=== PATIENT | female | born 1990 | race Caucasian/White ===

== ENCOUNTER 2025-11-19 13:52 | Outpatient (REF) | payer OTHER, SELFPAY ==
--- OUTSIDE RECORDS SUMMARY | 2024-09-30 06:30 | XMS_ITS | Encounter Summary ---
Author Organization [facility] Address [address] [place] [address] Care Team Providers Care Printing Agent Name Role Phone Donavon Palaciso MD Primary Care Provider Encounter Details Date Type Department Care Team (Late st Contact Info) Description 09/30/2024 7:30 AM EDT Hospital Encounter TH HISTORIC ENCOUNTERS EASTERN CONVERSION ONLY Ermelinda Carrasco PA [address] [place] [address] Social History Tobacco Use Types Packs/Day Years Used Date Smoking Tobacco: Never Smokeless Tobacco: Never Alcohol Use Standard Drinks/Week Comments No 0 (1 standard drink = 0.6 oz pur e alcohol) Housing Instability Answer Date Recorde d Are you worried that in the next 2 months you may not have stable housing? No 07/09/2025 Food Access & Nutrition Answer Date Rec orded Do you have access to a vari ety of food including fruits and vegetables? Yes 07/09/2025 Access to Healthcare Answer Date Record ed Within the last 3 months, ho w many times did you visit the emergency department for your medical care? 0 07/09/2025 Health Literacy Answer Date Recorded How often do you need to hav e someone help you when you read instructions, pamphlets, or other written material from your doctor or pharmacy? Never 07/09/2025 Caregiver: How often do you need to have someone help you when you read instructions, pamphlets, or other written material from your doctor or pharmacy? Not on file 07/09/2025 Financial Risk Answer Date Recorded How hard is it for you to pa y for the very basics like food, housing, medical care, and air conditioning / heating? Not very hard 07/09/2025 Transportation Answer Date Recorded Has the lack of transportati on kept you from meetings, work, or from getting things needed for daily living? No Has the lack of transportati on kept you from medical appointments or from getting medications? Yes 07/09/2025 Social Isolation Answer Date Recorded How often do you feel lonely or isolated from th ose around you? Never 07/09/2025 Food Risk Answer Date Recorded Within the past 12 months we worried whether our food would run out before we got money to buy more. Never true 07/09/2025 Within the past 12 months th e food we bought just didn't last and we didn't have money to get more. Never true 07/09/2025 Dependent Care Answer Date Recorded Do you need help finding or paying for care for your loved ones. For example, children's librarian or elderly care for an older adult? No 07/09/2025 Education Answer Date Recorded Do you think completing more education or training, like finishing a GED, going to college, or learning a trade, would be helpful for you? No 07/09/2025 Employment and Income Answer Date Recor ded During the last four weeks, have you been actively looking for work? No 07/09/2025 Living Situation Answer Date Recorded What is your living situation? Unrecognized valu e 07/09/2025 Comments No Sex and Gender Information Value Date Recorded Sex Assigned at Not on file Legal Sex Female 1:59 PM EST Gender Identity Not on file Sexual Orientation Not on file documented as of this encounter Plan of Treatment Upcoming Encounters Date Type Department Care Team (Late st Contact Info) Description 11/23/2025 8:15 AM EST Office Visit Orthopedic Surgery - [place] 175 [facility] [address] [place] [phone] Queenie Poole PA 175 [facility] [address] [place] [phone] 12/14/2025 10:00 AM EST Office Visit Adult Medicine [address] [phone] Donavon Palacios MD [address] [place] [address] 12/17/2025 8:00 AM EST Consult Gastroenterology - 299 [facility] 299 [facility] [address] [place] [address] Ju Delatorre, RASHI [address] [address] 01/05/2026 10:30 AM EST Office Visit Orthopedic Surgery - [place] [address] [phone] Shashank Chaidez, DPM [address] [phone] 01/17/2026 8:30 AM EST Office Visit Adult Medicine [address] [phone] Chaka Haque, RASHI [address] [place] [address] 07/18/2026 9:00 AM EDT Office Visit Adult [address] [phone] Donavon Palacios MD [address] [place] [address] documented as of this encounter Visit Diagnoses Not on filedocumented in this encounter Care Teams Printing Agent Relationship Specialty Start Date End Date Donavon Palacios MD [address] [place] [address] PCP - General 09/14/24 documented as of this encounter
--- OUTSIDE RECORDS SUMMARY | 2025-11-16 08:57 | XMS_ITS | Encounter Summary ---
Author Organization [facility] Address [address] [place] [address] Care Team Providers Care Stick Puller Name Role Phone Donavon Palacios MD Primary Care Provider Reason for Referral * Imaging (Routine) - Pending Review Specialty Diagnoses / Procedures Referred By Adonis che Referred To Contact Radiology Diagnoses Bursitis of left shoulder Procedures MR Shoulder wo Contrast Left Queenie Poole PA [address] [phone] Phone: tel: fax: [address] [phone] Phone: tel: Referral ID Status Reason Start Date Expiration Date V isits Requested Visits Authorized [id number] Pending Review 10/26/2025 10/26/2026 1 1 Reason for Visit * Imaging (Routine) - Pending Review Specialty Diagnoses / Procedures Referred By Adonis che Referred To Contact Radiology Diagnoses Bursitis of left shoulder Procedures MR Shoulder wo Contrast Left Queenie Poole PA [address] [address] Phone: tel: fax: [address] [address] Phone: tel: Referral ID Status Reason Start Date Expiration Date V isits Requested Visits Authorized [id number] Pending Review 10/26/2025 10/26/2026 1 1 Encounter Details Date Type Department Care Team (Latest Contact Info) Description 11/16/2025 8:57 AM EST - 11/16/2025 11:59 PM EST Hospital Encounter [facility] MRI [address] [place] [address] Bursitis of left shoulder Discharge Disposition: Home or Self Care Social History Tobacco Use Types Packs/Day Years [...] Record ed Within the last 3 months, jasper maldonado many times did you visit the emergency [...] care for your loved ones. For example, director of child welfare services or elderly care for an older adult? [...] on file documented as of this encounter Medications at Time of Discharge ascorbic acid (VITAMIN C) 250 mg tablet Take 1 tablet (250 mg total) by mouth 1 (one) time each day. 03/06/2017 atorvastatin (LIPITOR) 40 mg tablet Take 1 tablet (40 mg total) by mouth 1 (one) time each day. 90 each 1 08/04/2025 diphenhydramine HCl (BENADRYL ALLERGY ORAL) Take by mouth. ergocalciferol (VITAMIN D-2) 1,250 mcg (50,000 unit) capsule Take 1 capsule (50,000 Units total) by mouth 1 (one) time per week. 16 capsule 09/16/2025 ferrous sulfate 325 mg (65 mg elemental iron) tablet Take 1 tablet (325 mg total) by mouth 1 (one) time each day. 03/06/2017 magnesium oxide (MAG-OX) 400 mg magnesium tablet Take 1 tablet (400 mg total) by mouth 1 (one) time each day. 90 tablet 1 07/09/2025 omeprazole OTC (PriLOSEC OTC) 20 mg EC tablet Take 1 tablet (20 mg total) by mouth 1 (one) time each day. ondansetron (ZOFRAN) 4 mg tablet Take 1 tablet (4 mg total) by mouth every 8 (eight) hours if needed for nausea or vomiting. 270 tablet 1 09/16/2025 riboflavin (Vitamin B-2) 100 mg tablet Take 4 tablets (400 mg total) by mouth 1 (one) time each day. 360 tablet 3 07/12/2025 rizatriptan (Maxalt) 10 mg tablet Take 1 tablet (10 mg total) by mouth 1 (one) time if needed for migraine. May repeat in 2 hours if unresolved. Do not exceed 30 mg in 24 hours. 10 tablet 3 07/09/2025 sertraline (ZOLOFT) 50 mg tablet Take 1 tablet (50 mg total) by mouth 1 (one) time each day. fter 30 each 2 11/16/2025 silver sulfADIAZINE (Silvadene) 1 % cream Apply topically 1 (one) time each day. 50 g 07/01/2025 documented as of this encounter Discharge Disposition Disposition Code Departure Means Destination Home or Self Care documented in this encounter Plan of Treatment Upcoming Encounters Date Type Department Care Team (Late st Contact Info) Description 11/23/2025 8:15 AM EST Office Visit Orthopedic Surgery [facility] 175 [facility] 140 [place] [phone] Queenie Poole PA 175 [facility] 140 [place] [address] 12/14/2025 10:00 AM EST Office Visit Adult Medicine [facility] [address] [place], [place] [phone] Donavon Palacios MD [address] [place], [place] 12/17/2025 8:00 AM EST Consult Gastroenterology - 299 [facility] 299 [facility] [address] [place] [address] Ju Delatorre, RASHI [address] [address] 01/05/2026 10:30 AM EST Office Visit Orthopedic Surgery - [place] 250 175 [facility] 250 [place] [phone] Shashank Chaidez, DPM [address] [phone] 01/17/2026 8:30 AM EST Office Visit Adult [address] [phone] Chaka Haque NP [address] [place] [address] 07/18/2026 9:00 AM EDT Office Visit [address] [phone] Donavon Palacios MD [address] [place] [address] documented as of this encounter Procedures Procedure Name Priority Date/Time Associated Diagnosis Comments MR SHOULDER WO CONTRAST LEFT Routine 11/16/2025 10:34 AM EST Bursitis of left shoulder documented in this encounter Results * MR Shoulder wo Contrast Left (11/16/2025 10:34 AM EST) Anatomical Region Laterality Modality Upper Extremities, Shoulder Left Magn etic Resonance 11/17/2025 3:26 AM EST Impressions 11/17/2025 3:31 AM EST Findings suspicious for anterosuperior labral tearing with associated para labral cyst -------- FINAL REPORT -------- Dictated By: Enma Willoughby Dictated Date: 11/17/2025 03:26 ET Assigned Physician: Enma Willoughby Reviewed and Electronically Signed By: Enma Willoughby Signed Date: 11/17/2025 03:31 ET Workstation ID: [id number] Transcribed By: Self Edit Transcribed Date: 11/17/2025 03:26 ET Narrative 11/17/2025 3:31 AM EST INDICATION: Evaluate rotator cuff left shoulder pain. Clinical concern for bursitis. COMPARISON: None TECHNIQUE: Multiplanar, multisequence MRI examination was performed of the left shoulder without intravenous contrast. FINDINGS: Rotator Cuff: No rotator cuff tear of the left shoulder. The supraspinatus, infraspinatus and subscapularis tendons are intact. No significant muscle volume loss or fatty infiltration. Biceps Tendon: Intact Labrum: Irregularity and fluid signal involving the anterosuperior labrum with an associated para labral cyst suspicious for labral tearing. Bone/Cartilage: No acute fracture or dislocation. No significant cartilage thinning. AC Joint: No significant AC joint arthropathy. Downsloping acromion Miscellaneous:Trace subacromial/subdeltoid bursal fluid. Physiologic left shoulder joint fluid. Procedure Note Enma Willoughby MD - 11/17/2025 INDICATION: Evaluate rotator cuff left shoulder pain. Clinical concernfor bursitis. COMPARISON: None TECHNIQUE: Multiplanar, multisequence MRI examination was performed ofthe left shoulder without intravenous contrast. FINDINGS: Rotator Cuff: No rotator cuff tear of the left shoulder. Thesupraspinatus, infraspinatus and subscapularis tendons are intact. Nosignificant muscle volume loss or fatty infiltration. Biceps Tendon: Intact Labrum: Irregularity and fluid signal involving the anterosuperior labrumwith an associated para labral cyst suspicious for labral tearing. Bone/Cartilage: No acute fracture or dislocation. No significantcartilage thinning. AC Joint: No significant AC joint arthropathy. Downsloping acromion Miscellaneous:Trace subacromial/subdeltoid bursal fluid. Physiologic leftshoulder joint fluid. IMPRESSION: Findings suspicious for anterosuperior labral tearing with associated paralabral cyst -------- FINAL REPORT -------- Dictated By: Enma Willoughby Dictated Date: 11/17/2025 03:26 ET Assigned Physician: Enma Willoughby Reviewed and Electronically Signed By: Enma Willoughby Signed Date: 11/17/2025 03:31 ET Workstation ID: [id number] Transcribed By: Self Edit Transcribed Date: 11/17/2025 03:26 ET us Queenie SEN IMG MRI PROCEDURES Final Resu lt documented in this encounter Visit Diagnoses Diagnosis Bursitis of left shoulder documented in this encounter Additional Health Concerns Assessment Noted Time PHQ-9 Depression Total Score: 15 025 8:25 AM EDT documented as of this encounter Care Teams Stick Puller Relationship Specialty Start Date End Date Donavon Palacios MD [address] [place] [address] PCP - General 09/14/24 documented as of this encounter
--- OUTSIDE RECORDS SUMMARY | 2025-11-16 13:00 | XMS_ITS | Encounter Summary ---
Author Organization [facility] Address [address] [place] [address] Care Team Providers Care Video Network Engineer Name Role Phone Donavon Palacios MD Primary Care Provider Encounter Details Date Type Department Care Team (Late st Contact Info) Description 11/16/2025 1:00 PM EST Office Visit Adult Medicine [facility] [address] [place] [address] Chaka Haque, RASHI [address] [place] [address] Generalized anxiety disorder with panic attacks (Primary Dx); Moderate episode of recurrent major depressive disorder (CMS/HCC V24, CMS/HCC V28); Nonsuicidal self-injury (CMS/HCC V24, CMS/HCC V28) Social History Tobacco Use Types Packs/Day Years [...] care for your loved ones. For example, child support case officer or elderly care for an older adult? [...] on file documented as of this encounter Ordered Prescriptions Prescription Sig Dispense Quantity Refills Last Filled Start Date End Date sertraline (ZOLOFT) 50 mg tablet Take 1 tablet (50 mg total) by mouth 1 (one) time each day. fter 30 each 2 11/16/2025 02/14/2026 documented in this encounter Progress Notes * Chaka Cabelloson, RASHI - 11/16/2025 1:00 PM EST Images from the original note were not included. Outpatient Psychiatry Follow-Up Visit Chief Complaint: Follow-up management of anxiety and depression. Subjective: Patient ID: Rosa Maria Haney is a 35 y.o. female. History of Present Illness Rosa Maria presents for follow-up management of anxiety and depression. She reports that she startedtaking her sertraline a week later than it was prescribed. She states that overall her symptoms aregenerally the same and denies any changes currently. She reports some side effects of fatigue/lack of energy over the past 2 weeks and states that this has started getting better since then. She denies any other side effects to the medication. Sleep is still interrupted by poor sleep hygiene and anxiety. Appetite is appropriate. She denied any nonsuicidal self-injury or any intrusive thoughts ofnonsuicidal self- injury. She denies any SI/HI. She was referred to outpatient psychotherapy during her last visit - she reports that she received a voicemail to set up an appointment but has not called them back yet. Psych Review of Symptoms: Anxiety: Generalized Anxiety Symptoms: Difficulty controlling worry, excessive worry, difficulty with concentration, fatigues easily, physiological symptoms of anxiety and sleep disturbances due to anxiety. Additional Anxiety Symptoms: Panic attacks. Manifestations of panic attack include fear of dying, nausea, shortness of breath, chills, tachycardia, feeling of impending doom and tremulousness. Depressive Symptoms: Depressed mood, decreased interest, feelings of worthlessness, withdrawal/isolation, hopelessness, guilt, insomnia, low self esteem and suicidal ideation (Passive). Manic Symptoms: Patient denied any symptoms. Psychotic Symptoms: Patient denied any symptoms. Trauma Related Symptoms: No exaggerated startle response and no hypervigilance Review of Systems Constitutional: Negative for activity change and appetite change. Respiratory: Negative for chest tightness and shortness of breath. Cardiovascular: Negative for chest pain. Gastrointestinal: Negative for abdominal pain. Musculoskeletal: Positive for arthralgias. Skin: Negative for color change. Neurological: Negative for dizziness, facial asymmetry, light-headedness, numbness and headaches. Medical History[1] Patient Active Problem List Diagnosis Date Noted Depression 10/06/2024 Tooth decay 10/06/2024 Duodenal ulcer 10/23/2016 Migraine with aura and without status migrainosus, not intractable 10/23/2016 Allergy 04/19/2008 Surgical History[2] Current Outpatient Medications Medication Instructions ascorbic acid (VITAMIN C) 250 mg tablet 1 tablet, Daily atorvastatin (LIPITOR) 40 mg, oral, Daily diphenhydramine HCl (BENADRYL ALLERGY ORAL) Take by mouth. ergocalciferol (VITAMIN D-2) 50,000 Units, oral, Weekly ferrous sulfate 325 mg (65 mg elemental iron) tablet 1 tablet, Daily magnesium oxide (MAG-OX) 400 mg, oral, Daily omeprazole OTC (PRILOSEC OTC) 20 mg, Daily ondansetron (ZOFRAN) 4 mg, oral, Every 8 hours PRN riboflavin (VITAMIN B-2) 400 mg, oral, Daily rizatriptan (MAXALT) 10 mg, oral, Once as needed, May repeat in 2 hours if unresolved. Do not exceed 30 mg in 24 hours. sertraline (ZOLOFT) 50 mg, oral, Daily, fter silver sulfADIAZINE (Silvadene) 1 % cream Topical, Daily Medications Discontinued During This Encounter Medication Reason sertraline (ZOLOFT) 50 mg tablet Reorder Allergies: Allergies[3] Family History[4] Objective: There were no vitals taken for this visit. Estimated body mass index is 23.56 kg/m?? as calculated from the following: Height as of 09/23/25: 1.6 m (63 ). Weight as of 09/23/25: 60.3 kg (133 lb). Physical Exam Constitutional: Appearance: Normal appearance. HENT: Head: Normocephalic and atraumatic. Pulmonary: Effort: Pulmonary effort is normal. Musculoskeletal: General: Normal range of motion. Skin: General: Skin is warm and dry. Neurological: General: No focal deficit present. Mental Status: She is alert and oriented to person, place, and time. Mental Status Exam: General Appearance: well groomed, and has an average build. Patient is awake and alert Demeanor calm, cooperative, engaged Psychomotor Behavior: no psychomotor abnormality noticed Eye Contact appropriate Speech: normal, clear Mood described anxious Affect: euthymic, appropriate Thought process: Linear and goal-directed, no tangentiality not circumstantial Thought content: No paranoia reported, no delusions elicited Perception/ Hallucinations: No auditory or visual hallucinations Fund of Knowledge: Shows a typical level of knowledge for age and education Insight: Fair Judgement: Fair Oriented to Time, place and person Cognitive: Grossly Intact Suicide/homicide Suicide Risk assessment : Suicidality: Passive suicidal ideations with no intent or plan Homicidality: Denies HI, no intent or plan Impulse control: Fair Lab Review/Ordered: not applicable Assessment/Plan: 1. Generalized anxiety disorder with panic attacks (Primary) 2. Moderate episode of recurrent major depressive disorder ([facility] V24, [facility] V28) 3. Nonsuicidal self-injury ([facility] V24, [facility] V28) - Plan will be to continue sertraline 50 mg daily. No incidence of nonsuicidal self injury over thepast month. Patient encouraged to call [facility] back to schedule outpatient psychotherapy. - Follow-up in 2 months. - Psychoeducation was provided to the patient regarding the presenting issues, including the rationale for any medication changes, along with a discussion of the risks, benefits, and potential side effects of treatment versus non- treatment. Education on diagnosis and coping strategies was also provided, with the recommendation to participate in outpatient psychotherapy. The patient was also educated on the importance of sleep hygiene, the importance of self-care, diet/lifestyle changes, and SMART goals. The patient was also educated on the importance of medication compliance and adherence. Educated patient resources to use for any suicidal thoughts or plans. Note: This note was partly prepared by electronic dictation software and reasonable attempts were made to rectify errors. If you have any concerns regarding the error please contact this note insurance underwriter for further clarification/Corrections. Time spent on this encounter 30 minutes with more than 50 % time spent in coordinating care and counseling. Chaka Haque NP Psychiatric/Mental Health Nurse Practitioner [address] [address] Dept: [phone] Dept Date of Visit: 11/16/2025 I have verbally consented Rosa Maria Haney prior to the recording. I have advised Rosa Maria Haney that he/she may object to the recording and require the recording to be turned off at any time. [1] Past Medical History: Diagnosis Date Abdominal pain, generalized DX:Abdominal pain, generalized; COMMENT: 02/21/05 Acute pharyngitis DX:Acute pharyngitis; COMMENT: 08/05 Acute sinusitis, unspecified DX:Acute sinusitis, unspecified; COMMENT: 09/05,09/03 Acute upper respiratory infections of unspecified site DX:Acute upper respiratory infections of unspecified site; COMMENT: 04/05,01/06,11/04 Contusion of face, scalp, and neck except eye(s) DX:Contusion of face, scalp, and neck except eye(s); COMMENT: 04/24/04 Depression DX:Depression Dog bite(E906.0) DX:Dog bite(E906.0); COMMENT: 01/30/05 Fall resulting in striking against other object DX:Fall resulting in striking against other object; COMMENT: 04/24/04 Open wound of lip, without mention of complication DX:Open wound of lip, without mention of complication; COMMENT: 02/03,04/04 Other and unspecified noninfectious gastroenteritis and colitis(558.9) DX:Other and unspecified noninfectious gastroenteritis and colitis(558.9); COMMENT: 02/21/05 Sleep disturbance, unspecified DX:Sleep disturbance, unspecified; COMMENT: 09/04,08/05 Tooth decay DX:Tooth decay [2] Past Surgical History: Procedure Laterality Date ESOPHAGOGASTRODUODENOSCOPY 10/17/2016 PROCEDURE: AR EGD TRANSORAL BIOPSY SINGLE/MULTIPLE; COMMENT: [facility] - 1 cm duodenal bulb ulcer and antral erosions believed to be secondary to NSAID use. OTHER SURGICAL HISTORY 12/10/2006 PROCEDURE: TENDON OTHER HAND/FINGER; COMMENT: left hand [3] Allergies Allergen Reactions Cat Dander Fexofenadine-Pseudoephedrine Dizziness so severe it caused fall. House Dust Stuffed animals Nystatin-Triamcinolone Hives and Other Sometimes trouble breathing. [4] Family History Problem Relation Name Age of Onset Other (Other: cirrhosis of the liver ) Mother non-alcohol related Diabetes Uncle dad's side Breast cancer Aunt age 60 Colon cancer Other 35 paternal cousin Pancreatic cancer Neg Hx Prostate cancer Neg Hx Ovarian cancer Neg Hx Uterine cancer Neg Hx documented in this encounter Plan of Treatment Upcoming Encounters Date Type Department Care Team (Late st Contact Info) Description 11/23/2025 8:15 AM EST Office Visit Orthopedic Surgery - [place] 175 [facility] [address] [place] [phone] Queenie Poole PA 175 [facility] [address] [place] [address] 12/14/2025 10:00 AM EST Office Visit Adult Medicine [address] [phone] Donavon Palacios MD [address] [place] [address] 12/17/2025 8:00 AM EST Consult Gastroenterology - [address] [facility] [address] [place] [address] Ju Delatorre, RASHI [address] [address] 01/05/2026 10:30 AM EST Office Visit Orthopedic Surgery [facility] [address] 175 [facility] [address] [place] [phone] Shashank Chaidez, DPM [address] [phone] 01/17/2026 8:30 AM EST Office Visit Adult Medicine [address] [phone] Chaka Haque, RASHI [address] [place] [address] 07/18/2026 9:00 AM EDT Office Visit [address] [phone] Donavon Palacios MD [address] [place], [place] documented as of this encounter Visit Diagnoses Diagnosis Generalized anxiety disorder with panic attacks- Primary Moderate episode of recurrent major depressive disorder (CMS/[facility] V24, [facility] V28) Nonsuicidal self-injury (CMS/HCC V24, CMS/[facility] V28) documented in this encounter Discontinued Medications Medication Sig Discontinue Reason Start Date End Da te sertraline (ZOLOFT) 50 mg tablet Take 1 tablet (50 mg total) by mouth 1 (one) time each day. Take 1/2 tablet for the first 10 days; increase to whole tablet thereafter Reorder 10/19/2025 11/16/2025 documented as of this encounter Additional Health Concerns Assessment Noted Time PHQ-9 Depression Total Score: 15 025 8:25 AM EDT documented as of this encounter Care Teams Video Network Engineer Relationship Specialty Start Date End Date Donavon Palacios MD [address] [place], [place] PCP - General 09/14/24 documented as of this encounter
--- OUTSIDE RECORDS SUMMARY | 2025-11-16 13:45 | XMS_ITS | Encounter Summary ---
Author Organization [facility] Address [address] [place] [address] Care Team Providers Care Automotive Service Manager Name Role Phone Donavon Palacios MD Primary Care Provider Encounter Details Date Type Department Care Team (Late st Contact Info) Description 11/16/2025 1:45 PM EST Lab Draw Station [address] [phone] Encounter for screening for viral disease Social History Tobacco Use Types Packs/Day Years [...] for your loved ones. For example, child care attendant school or elderly care for an older adult? [...] AM EST Office Visit Orthopedic Surgery - [place] [address] [phone] Queenie Poole PA [address] [phone] 12/14/2025 10:00 AM EST Office Visit Adult Medicine [address] [phone] Donavon Palacios MD [address] [place] [address] 12/17/2025 8:00 AM EST Consult Gastroenterology - [address] [facility] [address] [place] [address] Ju Delatorre, RASHI 299 [facility] [address] [place] [address] 01/05/2026 10:30 AM EST Office Visit Orthopedic Surgery - [place] [address] [phone] Shashank Chaidez, DPM [address] [phone] 01/17/2026 8:30 AM EST Office Visit Adult Medicine [address] [phone] Chaka Haque, RASHI [address] [place] [address] 07/18/2026 9:00 AM EDT Office Visit Adult Medicine [address] [phone] Donavon Palacios MD [address] [place] [address] documented as of this encounter Procedures Procedure Name Priority Date/Time Associated Diagnosis Comments HIV 1, 2 ANTIBODY, P24 ANTIGEN WITH REFLEX TO DIFFERENTIATION Routine 11/16/2025 1:48 PM EST Encounter for screening for viral disease HEPATITIS PANEL, ACUTE WITH REFLEX TO CONFIRMATION Routine 11/16/2025 1:48 PM EST Encounter for screening for viral disease documented in this encounter Results * Hepatitis panel, acute with reflex to confirmation (11/16/2025 1:48 PM EST) Hepatitis B Surface Ag Negative Negative 11/16/2025 5:43 PM EST [facility] Comment:Over the counter sup plements containing high doses of biotin may interfere with this assay. If interference is suspected, patients shoud be retested after refraining from biotin supplements for 72 hours. Hepatitis A Antibody IgM Negative Negative 11/16/2025 5:43 PM EST [facility] Comment:Over the counter sup plements containing high doses of biotin may interfere with this assay. If interference is suspected, patients shoud be retested after refraining from biotin supplements for 72 hours. Hep B Core IgM Negative Negative 11/16/2025 5:43 PM EST [facility] Comment:Over the counter sup plements containing high doses of biotin may interfere with this assay. If interference is suspected, patients shoud be retested after refraining from biotin supplements for 72 hours. Hepatitis C Antibody Negative Negative 11/16/2025 5:43 PM EST [facility] Blood Venous blood specimen / Unknown Venipuncture / Unknown 11/16/2025 1:48 PM EST 11/16/2025 1:48 PM EST Cherelle Lynch [facility] BLOOD ORDERABLES Final Result [facility] [address] [place] [address], * HIV 1,2 antibody, p24 antigen with reflex to differentiation (11/16/2025 1:48 PM EST) HIV Combo AB/AG Negative Negative 11/16/2025 5:34 PM EST [facility] Blood Venous blood specimen / Unknown Venipuncture / Unknown 11/16/2025 1:48 PM EST 11/16/2025 1:48 PM EST Narrative [facility] - 11/16/2025 5:34 PM EST This assay is a 4th generation assay allowing for earlier detection of HIV infection by detecting the presence of the HIV-1 p24 antigen as well as the traditional antibodies to HIV type 1 (including group O) and type 2. Use of a 4th generation assay is the current CDC recommendation for HIV screening. Cherelle Lynch [facility] BLOOD ORDERABLES Final Result [facility] [address] [place] [address], documented in this encounter Visit Diagnoses Diagnosis Encounter for screening for viral disease documented in this encounter Additional Health Concerns Assessment Noted Time PHQ-9 Depression Total Score: 15 025 8:25 AM EDT documented as of this encounter Care Teams Automotive Service Manager Relationship Specialty Start Date End Date Donavon Palacios MD [address] [place] [address] PCP - General 09/14/24 documented as of this encounter
--- OUTSIDE RECORDS SUMMARY | 2025-11-16 14:00 | XMS_ITS | Encounter Summary ---
Author Organization [facility] Address [address] [place] [address] Care Team Providers Care Painter Mirror Name Role Phone Donavon Palacios MD Primary Care Provider Reason for Visit * Reason Comments Gynecologic Exam Encounter Details Date Type Department Care Team ([facility] Contact Info) Description 11/16/2025 2:00 PM EST Office Visit Obstetrics and Gynecology - [address] [phone] Cherelle Lynch, [address] [address] Women's annual routine gynecological examination (Primary Dx); Encounter for screening for viral disease Social [...] do you feel lonely or isolated from ose around you? Never 07/09/2025 Food Risk [...] care for your loved ones. For example, childcare administrator or elderly care for an older adult? [...] on file documented as of this encounter Last Filed Vital Signs Vital Sign Reading Time Taken Comments Blood Pressure 127/70 11/16/2025 1:20 PM EST Pulse 77 11/16/2025 1:20 PM EST Temperature - - Respiratory Rate 14 11/16/2025 1:20 PM EST Oxygen Saturation - - Inhaled Oxygen Concentration - - Weight 59.6 kg (131 lb 6.4 oz) 11/16/2025 1:20 P M EST Height - - Body Mass Index 23.28 09/23/2025 8:10 AM EDT documented in this encounter Progress Notes * Cherelle Lynch CNM - 11/16/2025 2:00 PM EST Office note: Annual Exam Encounter Date: 11/16/2025 HPI: Rosa Maria Haney is a 35 y.o. who presents for routine annual exam. Patient's last menstrual period was 10/31/2025. Recently accepted into ct scan tech program at [facility], needs hepatitis testing and would like HIV testing as well. Not SA, declines any other STI testing and contraception, Has occasional midcycle spotting, otherwise periods are regular with no bothersome sx. Eats a healthy diet and walk regularly Review of Systems - General ROS: negative Psychological ROS: negative Ophthalmic ROS: negative ENT ROS: negative Allergy and Immunology ROS: negative Hematological and Lymphatic ROS: negative Endocrine ROS: negative Breast ROS: negative for breast lumps Respiratory ROS: no cough, shortness of breath, or wheezing Cardiovascular ROS: no chest pain or dyspnea on exertion Gastrointestinal ROS: no abdominal pain, change in bowel habits, or black or bloody stools Genito-Urinary ROS: no dysuria, trouble voiding, or hematuria Musculoskeletal ROS: negative Neurological ROS: negative Dermatological ROS: negative Health Maintenance and Preventative Care: Health Maintenance: Last mammogram: n/a Immunization History Administered Date(s) Administered COVID-19 (Pfizer/Comirnaty) 12yo and older 08/21/2025 DTP 1991, 1991, 1991, 08/09/1993, 08/13/1995 [id number] (Pentacel) 2mo to less than 5yo 1991, 03/14/1992, 11/17/1992 HPV, Quadrivalent 11/19/2006, 01/22/2007, 06/02/2007 Hepatitis B Pediatric (Engerix B; Recombivax HB) to less than 20 yo 05/25/1996, 06/30/1996, 12/07/1996 Influenza Quadravalent, MDCK, 0.5ml, preservative free (Flucelvax) 6mo and older 07/15/2022 Influenza Quadrivalent, 0.5ml, preservative free (Fluarix; FluLaval; Fluzone) ages 6mo and older (Afluria) 3yo and older 07/14/2023 Influenza trivalent, 0.5mL, preservative free (Fluarix; FluLaval; Fluzone) ages 6mo and older (Afluria) 3 years and older 11/19/2007, 09/07/2009, 08/07/2024 Influenza trivalent, MDCK, 0.5mL, preservative free (Flucelvax) 6mo and older 07/29/2025 Influenza trivalent, with preservative (Fluzone; Afluria) 6mo and older 07/31/2021, 07/29/2025 MMR, measles mumps and rubella Live (Priorix; M-M-R II) 12mo and older 11/07/1992, 05/25/1996 Meningococcal MCV4P 11/19/2006 Moderna SARS-CoV-2 COVID-19, mRNA, LNP-S, preservative free 11/14/2022 OPV 1991, 1991, 1991, 08/09/1993, 08/13/1995 Pfizer SARS-CoV-2 COVID-19, mRNA, LNP-S, preservative free 01/19/2021, 02/11/2021, 11/15/2021, 11/13/2022, 11/01/2023, 08/07/2024 Td Tetanus diptheria (Tdvax) 7yo and older 09/24/2002 Tdap Tetanus diptheria acellular pertussis (Boostrix; Adacel) 7yo and older 11/19/2006, 06/30/2024 Varicella live (Varivax) 12mo and older 08/13/1995, 09/07/2009 OB History Para Term AB Living 0 0 0 0 0 0 SAB IAB Ectopic Multiple Live Births 0 0 0 0 0 Ui Ux Engineer History: Last Pap: 2023 NIL H/o abnormal Pap: no Completed Gardasil series: yes Domestic violence: no Problem List[1] Medical History[2] Surgical History[3] Family History[4] Social History Socioeconomic History Marital status: Single Spouse name: Not on file Number of children: Not on file Years of education: Not on file Highest education level: Not on file Occupational History Not on file Tobacco Use Smoking status: Never Smokeless tobacco: Never Substance and Sexual Activity Alcohol use: No Drug use: No Sexual activity: Not on file Comment: with boyfirned of 2m Other Topics Concern Not on file Social History Narrative 01/16/2010 Lives with her dad PETS: 2 cats Allergies[5] Prior to Admission medications Medication Sig Start Date End Date Taking? Authorizing Provider ascorbic acid (VITAMIN C) 250 mg tablet Take 1 tablet (250 mg total) by mouth 1 (one) time each day. 03/06/17 Historical Provider, atorvastatin (LIPITOR) 40 mg tablet Take 1 tablet (40 mg total) by mouth 1 (one) time each day. 08/04/25 Donavon Palacios MD diphenhydramine HCl (BENADRYL ALLERGY ORAL) Take by mouth. Historical Provider, ergocalciferol (VITAMIN D-2) 1,250 mcg (50,000 unit) capsule Take 1 capsule (50,000 Units total) bymouth 1 (one) time per week. 09/16/25 Donavon Palacios MD ferrous sulfate 325 mg (65 mg elemental iron) tablet Take 1 tablet (325 mg total) by mouth 1 (one) time each day. 03/06/17 Historical Provider, magnesium oxide (MAG-OX) 400 mg magnesium tablet Take 1 tablet (400 mg total) by mouth 1 (one) timeeach day. 07/09/25 Donavon Palacios MD omeprazole OTC (PriLOSEC OTC) 20 mg EC tablet Take 1 tablet (20 mg total) by mouth 1 (one) time each day. Historical Provider, ondansetron (ZOFRAN) 4 mg tablet Take 1 tablet (4 mg total) by mouth every 8 (eight) hours if needed for nausea or vomiting. 09/16/25 Donavon Palacios MD riboflavin (Vitamin B-2) 100 mg tablet Take 4 tablets (400 mg total) by mouth 1 (one) time each day. 07/12/25 Donavon Palacios MD rizatriptan (Maxalt) 10 mg tablet Take 1 tablet (10 mg total) by mouth 1 (one) time if needed for migraine. May repeat in 2 hours if unresolved. Do not exceed 30 mg in 24 hours. 07/09/25 Donavon Palacios MD sertraline (ZOLOFT) 50 mg tablet Take 1 tablet (50 mg total) by mouth 1 (one) time each day. fter 11/16/25 02/14/26 Chaka Haque NP silver sulfADIAZINE (Silvadene) 1 % cream Apply topically 1 (one) time each day. 07/01/25 07/01/26 Shashank Chaidez DPM sertraline (ZOLOFT) 50 mg tablet Take 1 tablet (50 mg total) by mouth 1 (one) time each day. Take 1/2 tablet for the first 10 days; increase to whole tablet thereafter 10/19/25 11/16/25 Chaka Haque NP Medications Taking[6] Physical exam: Blood pressure 127/70, pulse 77, resp. rate 14, weight 59.6 kg (131 lb 6.4 oz), last menstrual period 10/31/2025. Body mass index is 23.28 kg/m??. Gen: Alert, cooperative. Well-appearing on today's exam HEENT: head normocephalic without obvious deformity. Normal dentition. Neck: Trachea midline. No palpable cervical lymphadenopathy noted. Thyroid normal to inspection andpalpation. Cardiovascular: regular rate and rhythm, no m/r/g Lung: clear to auscultation bilaterally, no wheezing, ronchi, normal respiratory effort Breast: Normal appearance, no masses or tenderness, no nipple retraction or dimpling bilaterally. No axillary or supraclavicular lymphadenopathy. Abdomen: Soft,non-tender. No masses palpable, no organomegaly. Extremities: no calf tenderness, discoloration or edema, atraumatic without deformity Psych: Mood and affect appropriate. Pelvic: External Genitalia: Normal architecture, without lesions. No inguinal lymphadenopathy. Vagina: Mucosa is pink with normal rugae. No abnormal discharge or lesions. Cervix: Normal appearance, without discharge or lesions. No cervical motion tenderness. Pap smear not obtained. Uterus: Normal size and shape. Non-tender. Mobile Adnexa: No adnexal masses or tenderness bilaterally. Perianal area without lesions Assessment/Plan: 35 y.o. 1. Screening for sexually transmitted infections -testing declined 2. Contraception -declined 3. Health Maintenance and Screening -Reviewed ASCCP guidelines. Pap smear due 2028, yearly pelvic exam. -Reviewed and encouraged diet and exercise for cardiovascular and bone health -Reviewed breast self awareness. Begin yearly mammogram at age 40. -Continue to follow with PCP for general medical care, immunizations -Family and personal history of cancer reviewed. Based on this evaluation, neither BRCA nor Mathew testing are indicated. 1. Women's annual routine gynecological examination 2. Encounter for screening for viral disease Hepatitis panel, acute with reflex to confirmation HIV 1,2 antibody, p24 antigen with reflex to differentiation Orders Placed This Encounter Procedures Hepatitis panel, acute with reflex to confirmation Standing Status: Future Expiration Date: 11/16/2026 Release to patient: Immediate [1] HIV 1,2 antibody, p24 antigen with reflex to differentiation Standing Status: Future Expiration Date: 11/16/2026 Is this test being used for Screening (absence of signs and/or symptoms) OR Diagnostic (signs/symptoms are present) purposes?: Screen Patient had opportunity to ask questions, and consented to testing, if required by state law?: Not Applicable Cherelle Lynch CNM [1] Patient Active Problem List Diagnosis Allergy Depression Duodenal ulcer Migraine with aura and without status migrainosus, not intractable Tooth decay [2] Past Medical History: Diagnosis Date Abdominal pain, [...] unspecified; COMMENT: 09/04,08/05 Tooth decay DX:Tooth decay [3] Past Surgical History: Procedure Laterality Date ESOPHAGOGASTRODUODENOSCOPY 10/17/2016 PROCEDURE: MT EGD TRANSORAL BIOPSY SINGLE/MULTIPLE; COMMENT: [facility] - 1 cm duodenal bulb ulcer and antral erosions believed to be secondary to NSAID use. OTHER SURGICAL HISTORY 12/10/2006 PROCEDURE: TENDON OTHER HAND/FINGER; COMMENT: left hand [4] Family History Problem Relation Name Age of Onset Other (Other: cirrhosis of the liver ) Mother non-alcohol related Diabetes Uncle dad's side Breast cancer Aunt age 60 Colon cancer Other 35 paternal cousin Pancreatic cancer Neg Hx Prostate cancer Neg Hx Ovarian cancer Neg Hx Uterine cancer Neg Hx [5] Allergies Allergen Reactions Cat Dander Fexofenadine-Pseudoephedrine Dizziness so severe it caused fall. House Dust Stuffed animals Nystatin-Triamcinolone Hives and Other Sometimes trouble breathing. [6] No outpatient medications have been marked as taking for the 11/16/25 encounter (Office Visit) withCherelle Lynch CNM. documented in this encounter Plan of Treatment Upcoming Encounters Date Type Department Care Team (Late st Contact Info) Description 11/23/2025 8:15 AM EST Office Visit Orthopedic Surgery - [place] [address] [phone] Queenie Poole PA [address] [address] 12/14/2025 10:00 AM EST Office Visit Adult Medicine [facility] [address] [place] [address] Donavon Palacios MD [address] [place], [place] 12/17/2025 8:00 AM EST Consult Gastroenterology - [address] [facility] [address] [place] [address] Ju Delatorre, RASHI [address] [address] 01/05/2026 10:30 AM EST Office Visit Orthopedic Surgery - [place] [address] [phone] Shashank Chaidez, DPM [address] [phone] 01/17/2026 8:30 AM EST Office Visit Adult Medicine [address] [phone] Chaka Haque NP [address] [place], [place] 07/18/2026 9:00 AM EDT Office Visit Adult Medicine [address] [phone] Donavon Palacios MD [address] [place] [address] documented as of this encounter Results * HIV 1,2 antibody, p24 antigen with reflex to differentiation (11/16/2025 1:48 PM EST) HIV Combo AB/AG Negative Negative 11/16/2025 5:[address] [facility] Blood Venous blood specimen / Unknown Venipuncture / Unknown 11/16/2025 1:48 PM EST 11/16/2025 1:48 PM EST [facility] - 11/16/2025 5:34 PM EST This assay is a 4th generation assay allowing for earlier detection of HIV infection by detecting the presence of the HIV-1 p24 antigen as well as the traditional antibodies to HIV type 1 (including group O) and type 2. Use of a 4th generation assay is the current CDC recommendation for HIV screening. Cherelle Lynch [facility] BLOOD ORDERABLES Final Result Performing Organization Address City/[facility]/ZIP Co de Phone Number [facility] [address] [place] [address], [place] [phone] * Hepatitis panel, acute with reflex to confirmation (11/16/2025 1:48 PM EST) Hepatitis B Surface Ag Negative Negative 11/16/2025 5:[address] [facility] Comment:Over the counter sup plements containing high doses of biotin may interfere with this assay. If interference is suspected, patients shoud be retested after refraining from biotin supplements for 72 hours. Hepatitis A Antibody IgM Negative Negative 11/16/2025 5:[address] [facility] Comment:Over the counter sup plements containing high doses of biotin may interfere with this assay. If interference is suspected, patients shoud be retested after refraining from biotin supplements for 72 hours. Hep B Core IgM Negative Negative 11/16/2025 5:[address] [facility] Comment:Over the counter sup plements containing high doses of biotin may interfere with this assay. If interference is suspected, patients shoud be retested after refraining from biotin supplements for 72 hours. Hepatitis C Antibody Negative Negative 11/16/2025 5:[address] [facility] Blood Venous blood specimen / Unknown Venipuncture / Unknown 11/16/2025 1:48 PM EST 11/16/2025 1:48 PM EST Cherelle Lynch [facility] BLOOD ORDERABLES Final Result [facility] [address] [place] [address], documented in this encounter Visit Diagnoses Diagnosis Women's annual routine gynecological examination- Primary Encounter for screening for viral disease documented in this encounter Additional Health Concerns Assessment Noted Time PHQ-9 Depression Total Score: 15 025 8:25 AM EDT documented as of this encounter Care Teams Painter Mirror Relationship Specialty Start Date End Date Donavon Palacios MD [address] [place] [address] PCP - General 09/14/24 documented as of this encounter
--- NOTE | 2025-11-19 13:59 | EMG_ITS ---
Chief complaint: Left shoulder pain. Numbness tingling from left elbow to fingers. Reason for referral: Evaluate for ulnar neuropathy, Carpal Tunnel Syndrome radiculopathy. Referred by: Queenie SEN Procedure done: Left upper extremity NCS/EMG Precautions and/or limitations: None The limb temperature was monitored continuously and remained between 32-36 degrees C during the performance of the NCS. Nerve Conduction Studies Anti Sensory Summary Table ?Stim Site NR Onset (ms) Norm Onset (ms) Peak (ms) Norm Peak (ms) O-P Amp (?V) Norm O-P Amp Site1 Site2 Delta-0 (ms) Dist (cm) Mikhail (m/s) Norm Mikhail (m/s) Left Lat Ante Brach Cutan Anti Sensory (Lat Forearm) Lat Biceps ? 2.1 2.5 8.7 Lat Biceps Lat Forearm 2.1 0.0 Left Med Ante Brach Cutan Anti Sensory (Med Forearm) Elbow ? 1.4 2.4 1.8 Elbow Med Forearm 1.4 0.0 Left Median Anti Sensory (2nd Digit) Wrist ? 2.4 2.9 <3.6 69.7 >10 Wrist 2nd Digit 2.4 14.0 58 Left Radial Anti Sensory (Thumb) Forearm ? 1.6 2.1 <3.1 48.5 Forearm Thumb 1.6 0.0 Left Ulnar Anti Sensory (5th Digit) Wrist ? 1.0 2.8 <3.7 20.2 >15.0 Wrist 5th Digit 1.0 14.0 140 Motor Summary Table ?Stim Site NR Onset (ms) Norm Onset (ms) O-P Amp (mV) Norm O-P Amp iAmp (mV) Amp (1st) (%) Site1 Site2 Delta-0 (ms) Dist (cm) Mikhail (m/s) Norm Mikhail (m/s) Left Median Motor (Abd Poll Brev) Wrist ? 2.7 <3.9 15.0 >4.5 18.3 100.0 Elbow Wrist 3.4 18.5 54 >45 Elbow ? 6.1 14.4 17.8 96.0 Left Ulnar Motor (Abd Dig Minimi) Wrist ? 2.3 <3.0 6.6 >5 8.5 100.0 B Elbow Wrist 2.5 16.0 64 >45 B Elbow ? 4.8 6.3 8.3 95.5 A Elbow B Elbow 1.6 10.0 62 >45 A Elbow ? 6.4 6.2 8.2 93.9 EMG ?Side Muscle Nerve Root Ins Act Fibs Psw Amp Dur Poly Recrt Int Pat Comment Left 1stDorInt Ulnar C8-T1 Nml Nml Nml Nml Nml 0 Nml Complete Left FlexCarpiUln Ulnar C8,T1 Nml Nml Nml Nml Nml 0 Nml Complete Left Biceps Musculocut C5-6 Nml Nml Nml Nml Nml 0 Nml Complete Left Triceps Radial C6-7-8 Nml Nml Nml Nml Nml 0 Nml Complete Left Deltoid Axillary C5-6 Incr 1+ Nml Nml Nml 0 Nml Complete Left Supraspinatus SupraScap C5-6 Nml Nml Nml Nml Nml 0 Nml Complete Paraspinal EMG ?Side Muscle Nerve Root Ins Act Fibs Psw Comment Left Cervical Upper Rami Nml Nml Nml Left Cervical Mid Rami Nml Nml Nml Left Cervical Lower Rami Nml Nml Nml FINDINGS: All motor and sensory nerves tested showed normal latencies, amplitudes and conduction velocities. Concentric needle EMG was performed in selected muscles of the left upper extremity and cervical paraspinals. Study revealed signs of electric abnormalities as shown in the table above. Increased fibrillations on left deltoid was remarked IMPRESSION: 1. This is minimally abnormal study. 2. Unknown clinical significance of increased fibrillations on left deltoid. 3. There is no definitive electrodiagnostic evidence for brachial plexopathy or cervical radiculopathy. 4. There is no electrodiagnostic evidence for median neuropathy or ulnar neuropathy. CLINICAL COMMENT: Further clinical correlation recommended. Thank you for your kind referral. Isabela Jarvis MD, NAN Board Certified, [place] [employer] and Rehabilitation (ABPMR) Board Certified, [place] Board of Electrodiagnostic Medicine (ABEM) CODIN 85076 x 1 extremity remove all few MTDD
--- OUTSIDE RECORDS SUMMARY | 2025-11-19 15:32 | XMS_ITS | Encounter Summary ---
Author Organization [facility] [address] Address [address] [place] [address] Care Team Providers Care Tool Checker Name Role Phone Donavon Palacios MD Primary Care Provider Encounter Details Date Type Department Care Team ([facility] st Contact Info) Description 11/17/2025 Results Follow-Up Obstetrics and Gynecology [address] [phone] Cherelle Lynch, [facility] [address] [place] [address] Social History Tobacco Use Types Packs/Day Years [...] for your loved ones. For example, child welfare caseworker or elderly care for an older adult? [...] AM EST Office Visit Orthopedic Surgery - [place] 175 [facility] [address] [place] [phone] Queenie Poole PA 175 [facility] [address] [facility] [address] [place] [address] 12/14/2025 10:00 AM EST Office Visit Adult [address] [phone] Donavon Palacios MD [address] [place] [address] 12/17/2025 8:00 AM EST Consult Gastroenterology - [address] [facility] [address] [place] [address] Ju Delatorre, RASHI [address] [address] 01/05/2026 10:30 AM EST Office Visit Orthopedic Surgery - [place] [address] [phone] Shashank Chaidez, DPM [address] [phone] 01/17/2026 8:30 AM EST Office Visit Adult [address] [phone] Chaka Haque NP [address] [place] [address] 07/18/2026 9:00 AM EDT Office Visit Adult [address] [phone] Donavon Palacios MD [address] [place] [address] documented as of this encounter Visit Diagnoses Not on filedocumented in this encounter Additional Health Concerns Assessment Noted Time PHQ-9 Depression Total Score: 15 08/2 025 8:25 AM EDT documented as of this encounter Care Teams Tool Checker Relationship Specialty Start Date End Date Donavon Palacios MD [address] [place] [address] PCP - General 09/14/24 documented as of this encounter
--- OUTSIDE RECORDS SUMMARY | 2025-11-19 15:32 | XMS_ITS | Encounter Summary ---
Author Organization [facility] Address [address] [place] [address] Care Team Providers Care Machine Hand Name Role Phone Donavon Palacios MD Primary Care Provider Reason for Visit * Reason Onset Date Comments Medication Problem 10/20/2025 Encounter Details Date Type Department Care Team ([facility] st Contact Info) Description 10/20/2025 Telephone Adult Medicine [facility] [address] [place], [place] [phone] Donavon Palacios MD [address] [place], [place] Social History Tobacco Use Types Packs/Day Years [...] for your loved ones. For example, child and adolescent therapist or elderly care for an older adult? [...] on file documented as of this encounter Progress Notes * Vanna Henry MA - 10/25/2025 1:[address] Palacios please advise. Patient states medication not helping with her migraine headaches * Audrey Beltre - 10/20/2025 3:38 PM EST Medication Problem: What is the name of the medication patient is having a problem with?: Rizatriptan 10 mg tablet What is the problem?: Still have migraines and states medication is not working/helping Who is calling about the problem? : The patient Is this a NEW medication?: yes How long has the patient been taking this medication? Yesterday was first day, pt states she has had prescription for a while Who prescribed this medication for the patient? pcp Who is patients PCP?: Donavon Palacios MD [facility] [employer] PL[facility] / Plan: [facility] MEDICAID / Product Type: *No Product type* / documented in this encounter Plan of Treatment Upcoming Encounters Date Type Department Care Team (Late st Contact Info) Description 11/23/2025 8:15 AM EST Office Visit Orthopedic Surgery [facility] 175 [facility] [address] [place] [phone] Queenie Poole PA 175 [facility] [place] [facility] [address] [place] [address] 12/14/2025 10:00 AM EST Office Visit Adult Medicine [facility] [address] [place], [place] [phone] Donavon Palacios MD [address] [place] [address] 12/17/2025 8:00 AM EST Consult Gastroenterology - [address] [facility] [address] [place] [phone] Ju Delatorre NP 299 [facility] [address] [place] [address] 01/05/2026 10:30 AM EST Office Visit Orthopedic Surgery [facility] 250 175 [facility] [address] [place] [phone] Shashank Chaidez, DPM 175 [facility] [address] [place] [phone] 01/17/2026 8:30 AM EST Office Visit Adult [address] [phone] Chaka Haque NP [address] [place], [place] 07/18/2026 9:00 AM EDT Office Visit [address] [phone] Donavon Palacios MD [address] [place] [address] documented as of this encounter Visit Diagnoses Not on filedocumented in this encounter Additional Health Concerns Assessment Noted Time PHQ-9 Depression Total Score: 15 025 8:25 AM EDT documented as of this encounter Care Teams Machine Hand Relationship Specialty Start Date End Date Donavon Palacios MD [address] [place] [address] PCP - General 09/14/24 documented as of this encounter
--- OUTSIDE RECORDS SUMMARY | 2025-11-19 15:32 | XMS_ITS | Encounter Summary ---
Author Organization [facility] Address [address] [place] [address] Care Team Providers Care Cell Inspector Name Role Phone Donavon Palacios MD Primary Care Provider Encounter Details Date Type Department Care Team ([facility] st Contact Info) Description 11/17/2025 Results Follow-Up Orthopedic Surgery - [place] [address] [facility] [address] [place] [phone] Queenie Poole PA [address] [place] [phone] Social History Tobacco Use Types Packs/Day Years [...] care for your loved ones. For example, early childhood associate teacher or elderly care for an older adult? [...] AM EST Office Visit Orthopedic Surgery - [place] [address] [facility] [address] [place] [phone] Queenie Poole PA [address] [facility] [address] [place] [address] 12/14/2025 10:00 AM EST Office Visit Adult [address] [phone] Donavon Palacios MD [address] [place] [address] 12/17/2025 8:00 AM EST Consult Gastroenterology - [address] [facility] [address] [place] [address] Ju Delatorre, RASHI [address] [address] 01/05/2026 10:30 AM EST Office Visit Orthopedic Surgery - [place] [address] [phone] Shashank Chaidez, DPM [address] [phone] 01/17/2026 8:30 AM EST Office Visit Adult [address] [phone] Chaka Haque, RASHI [address] [place], [place] 07/18/2026 9:00 AM EDT Office Visit Adult [address] [phone] Donavon Palacios MD [address] [place] [address] documented as of this encounter Visit Diagnoses Not on filedocumented in this encounter Additional Health Concerns Assessment Noted Time PHQ-9 Depression Total Score: 15 08/2 025 8:25 AM EDT documented as of this encounter Care Teams Cell Inspector Relationship Specialty Start Date End Date Donavon Palacios MD [address] [place] [address] PCP - General 09/14/24 documented as of this encounter
--- OUTSIDE RECORDS SUMMARY | 2025-11-19 15:32 | XMS_ITS | Clinical Summary ---
Author Organization [address] [facility] Address [address] [place] [address] Phone Care Team Providers Care Crop Roller Name Role Phone Donavon Palacios MD Primary Care Provider Allergies Active Allergy Reactions Criticality Noted Date Comments Cat Dander 11/19/2007 Fexofenadine-Pseudoephedr ine 08/19/2008 Dizziness so severe it caused fall. House Dust 11/19/2007 Stuffed animals Nystatin-Triamcinolone Hives,Other 12/15/2024 Sometimes trouble breathing. Medications ferrous sulfate 325 mg (65 mg elemental iron) tablet Take 1 tablet (325 mg total) by mouth 1 (one) time each day. 7 Active ascorbic acid (VITAMIN C) 250 mg tablet Take 1 tablet (250 mg total) by mouth 1 (one) time each day. 7 Active diphenhydramine HCl (BENADRYL ALLERGY ORAL) Take by mouth. A ctive omeprazole OTC (PriLOSEC OTC) 20 mg EC tablet Take 1 tablet (20 mg total) by mouth 1 (one) time each day. Active silver sulfADIAZINE (Silvadene) 1 % cream Apply topically 1 (one) time each day. 50 g 5 026 Active magnesium oxide (MAG-OX) 400 mg magnesium tablet Take 1 tablet (400 mg total) by mouth 1 (one) time each day. 90 tablet 1 5 Active rizatriptan (Maxalt) 10 mg tablet Take 1 tablet (10 mg total) by mouth 1 (one) time if needed for migraine. May repeat in 2 hours if unresolved. Do not exceed 30 mg in 24 hours. 10 tablet 3 5 Active riboflavin (Vitamin B-2) 100 mg tablet Take 4 tablets (400 mg total) by mouth 1 (one) time each day. 360 tablet 3 5 Active atorvastatin (LIPITOR) 40 mg tablet Take 1 tablet (40 mg total) by mouth 1 (one) time each day. 90 each 1 5 Active ondansetron (ZOFRAN) 4 mg tablet Take 1 tablet (4 mg total) by mouth every 8 (eight) hours if needed for nausea or vomiting. 270 tablet 1 5 Active ergocalciferol (VITAMIN D-2) 1,250 mcg (50,000 unit) capsule Take 1 capsule (50,000 Units total) by mouth 1 (one) time per week. 16 capsule 5 Active sertraline (ZOLOFT) 50 mg tablet Take 1 tablet (50 mg total) by mouth 1 (one) time each day. fter 30 each 2 5 026 Active sertraline (ZOLOFT) 50 mg tablet Take 1 tablet (50 mg total) by mouth 1 (one) time each day. Take 1/2 tablet for the first 10 days; increase to whole tablet thereafter 30 each 5 025 Discontin ued(Reord er) Active Problems Problem Noted Date Diagnosed Date Depression 10/06/2024 Tooth decay 10/06/2024 Duodenal ulcer 10/23/2016 Overview (10/06/2024): Caused severe anemia/GIB. She was hospitilized and received blood transfusion 2016 Migraine with aura and witho ut status migrainosus, not intractable 10/23/2016 Allergy 04/19/2008 Overview (10/06/2024): seasonal IMO update Encounters Date Type Department Care Team Description 11/17/2025 Results Follow-Up Obstetrics and Gynecology - [address] [phone] Cherelle Lynch CNM 11/17/2025 Results Follow-Up Orthopedic Surgery [address] [phone] Queenie Poole PA 11/16/2025 2:00 PM EST Office Visit Obstetrics and Gynecology - [address] [phone] Cherelle Lynch, CHRISTINA Women's annual routine gynecological examination (Primary Dx); Encounter for screening for viral disease 11/16/2025 1:45 PM EST Lab Draw Station - [address] Encounter for screening for viral disease 11/16/2025 1:00 PM EST Office Visit Adult Medicine [facility] - [address] [phone] Chaka Haque, RASHI Generalized anxiety disorder with panic attacks (Primary Dx); Moderate episode of recurrent major depressive disorder (CMS/HCC V24, CMS/HCC V28); Nonsuicidal self-injury (CMS/HCC V24, CMS/HCC V28) 11/16/2025 8:57 AM EST - 11/16/2025 11:59 PM EST Hospital Encounter MRI [address] [place] [phone] Bursitis of left shoulder Discharge Disposition: Home or Self Care 11/01/2025 11:30 AM EST Treatment [address] [phone] Piedad Trinh, PT Acute pain of left shoulder (Primary Dx) 10/27/2025 11:30 AM EST Treatment [address] [phone] Lee Patel CUSTODIAN Acute pain of left shoulder (Primary Dx) 10/26/2025 10:30 AM EST Office Visit Orthopedic Surgery [address] [phone] Queenie Poole PA Bursitis of left shoulder (Primary Dx); Arm paresthesia, left 10/25/2025 1:30 PM EST Treatment [facility] [address] [phone] Lee Patel, CUSTODIAN Acute pain of left shoulder (Primary Dx) 10/22/2025 1:30 PM EST Treatment [facility] [address] [phone] Lee Patel, CUSTODIAN Acute pain of left shoulder (Primary Dx); Arthralgia of left ankle 10/20/2025 1:30 PM EST Treatment [address] [phone] Piedad Trinh, PT Acute pain of left shoulder (Primary Dx) 10/20/2025 Telephone Adult Medicine [address] [phone] Donavon Palacios MD 10/19/2025 8:00 AM EST Office Visit Adult Medicine [address] [phone] Chaka Haque, RASHI Generalized anxiety disorder with panic attacks (Primary Dx); Moderate episode of recurrent major depressive disorder (CMS/HCC V24, CMS/HCC V28); Nonsuicidal self-injury (CMS/HCC V24, CMS/HCC V28) 10/12/2025 7:00 AM EST Treatment [facility] [address] [phone] Piedad Trinh, PT Acute pain of left shoulder (Primary Dx) 10/06/2025 Telephone Orthopedic [facility] 160 175 [facility] 160 [place] [phone] Sheba Pascal MA 10/05/2025 1:15 PM EST Office Visit Orthopedic Surgery [facility] 250 175 [facility] 250 [place] [phone] Shashank Chaidez, DPM Synovitis of left ankle (Primary Dx); Ingrowing nail 10/05/2025 7:00 AM EST Evaluation [facility] [address] [phone] Piedad Trinh, PT Acute pain of left shoulder 09/23/2025 8:15 AM EDT Office Visit Orthopedic Surgery [address] [place] [phone] Queenie Poole PA Arm paresthesia, left (Primary Dx); Bursitis of left shoulder 09/16/2025 12:00 PM EDT Office Visit Adult Medicine [address] [phone] Donavon Palacios MD Vitamin D deficiency (Primary Dx); Encounter for vitamin deficiency screening; Migraine with aura and without status migrainosus, not intractable; Pure hypercholesterolemia 09/16/2025 8:00 AM EDT Office Visit Orthopedic [address] [place] [phone] Queenie Poole PA Neck pain (Primary Dx); Arm paresthesia, left; Bursitis of left shoulder 09/16/2025 Telephone Adult Medicine [address] [phone] Donavon Palacios MD 09/16/2025 Results Follow-Up Adult Medicine [address] [phone] Donavon Palacios MD 09/16/2025 Telephone Adult Medicine [address] [phone] Donavon Palacios MD 09/14/2025 Telephone Orthopedic Surgery [facility] 250 175 [facility] 250 [place] [phone] Queenie Poole PA 09/09/2025 1:30 PM EDT Consult Orthopedic [address] [place] [phone] Queenie Poole PA Arm paresthesia, left (Primary Dx); Bursitis of left shoulder 09/02/2025 Results Follow-Up Adult Medicine [address] [phone] Vince Hernandez PA 09/01/2025 11:00 AM EDT Office Visit Adult Medicine [address] [phone] Vince Hernandez PA Acute pain of left shoulder (Primary Dx) 09/01/2025 10:41 AM EDT - 09/01/2025 11:59 PM EDT Hospital Encounter [address] [phone] Acute pain of left shoulder Discharge Disposition: Home or Self Care 08/30/2025 Telephone Adult Medicine [address] [phone] Donavon Palacios MD from Last 3 Months Immunizations Immunization Administration Dates Next Due DTP 08/13/1995, 3,1991,09/24,1991 OMsI-[id number] (Pentacel) 2mo to less than 5yo 11/17/1992,03/14/1992,1991 HPV, Quadrivalent 06/02/2007,01/22/2007,11/19/20 06 Hepatitis B Pediatric (Enger ix B; Recombivax HB) to less than 20 yo 12/07/1996,06/30/1996,05/25/1996 Influenza Quadravalent, MDCK , 0.5ml, preservative free (Flucelvax) 6mo and older 07/15/2022 Influenza Quadrivalent, 0.5m l, preservative free (Fluarix; FluLaval; Fluzone) ages 6mo and older (Afluria) 3yo and older 07/14/2023 Influenza trivalent, 0.5mL, preservative free (Fluarix; FluLaval; Fluzone) ages 6mo and older (Afluria) 3 years and older 08/07/2024,09/07/2009,11/19/2007 Influenza trivalent, MDCK, 0 .5mL, preservative free (Flucelvax) 6mo and older 07/29/2025 Influenza trivalent, with pr eservative (Fluzone; Afluria) 6mo and older 07/29/2025,07/31/2021 MMR, measles mumps and rubel la Live (Priorix; M-M-R II) 12mo and older 05/25/1996,11/07/1992 Meningococcal MCV4P 11/19/2006 Moderna SARS-CoV-2 COVID-19, mRNA, LNP-S, preservative free 11/14/2022 OPV 08/13/1995, 3,1991,09/24,1991 Pfizer SARS-CoV-2 COVID-19, mRNA, LNP-S, preservative free 08/07/2024,11/01/2023,11/13/2022,11/15,02/11/2021,01/19/2021 Td Tetanus diptheria (Tdvax) 7yo and older 09/24/2002 Tdap Tetanus diptheria acell ular pertussis (Boostrix; Adacel) 7yo and older 06/30/2024,11/19/2006 Varicella live (Varivax) 12m o and older 09/07/2009,08/13/1995 Surgical History Surgery Date Site/Laterality Comments OTHER SURGICAL HISTORY 12/10/2006 PROCEDURE: TENDON OTHER HAND/FINGER; COMMENT: left hand ESOPHAGOGASTRODUODENOSCOPY 10/17/2016 PROCEDURE: [place] EGD TRANSORAL BIOPSY SINGLE/MULTIPLE; COMMENT: [facility] - 1 cm duodenal bulb ulcer and antral erosions believed to be secondary to NSAID use. Medical History Medical History Date Comments Acute sinusitis, unspecified DX: Acute sinusitis, unspecified; COMMENT: 09/05,09/03 Acute pharyngitis DX:Acute phary ngitis; COMMENT: 08/05 Acute upper respiratory infe ctions of unspecified site DX:Acute upper respiratory i nfections of unspecified site; COMMENT: 04/05,01/06,11/04 Abdominal pain, generalized DX:A bdominal pain, generalized; COMMENT: 02/21/05 Open wound of lip, without m ention of complication DX:Open wound of lip, withou t mention of complication; COMMENT: 02/03,04/04 Dog bite(E906.0) DX:Dog bite(E90 6.0); COMMENT: 01/30/05 Sleep disturbance, unspecified D X:Sleep disturbance, unspecified; COMMENT: 09/04,08/05 Contusion of face, scalp, an d neck except eye(s) DX:Contusion of face, scalp, and neck except eye(s); COMMENT: 04/24/04 Fall resulting in striking a gainst other object DX:Fall resulting in strikin g against other object; COMMENT: 04/24/04 Other and unspecified noninf ectious gastroenteritis and colitis(558.9) DX:Other and unspec ified noninfectious gastroenteritis and colitis(558.9); COMMENT: 02/21/05 Tooth decay DX:Tooth decay Depression DX:Depression Family History Medical History Relation Name Comments Breast cancer Aunt 1 age 60 Other: cirrhosis of the liver Mother non-alcohol related Colon cancer Other 1 paternal cousin Diabetes Uncle 1 dad's side Ovarian cancer Neg Hx Pancreatic cancer Neg Hx Prostate cancer Neg Hx Uterine cancer Neg Hx Relation Name Status Comments Aunt 1 Aunt 2 Father Alive 11/07/42 Mother 06/12/64 Other 1 Other 2 Sister Alive SOLE 08/22/87 Uncle 1 Uncle 2 Social History Tobacco Use Types Packs/Day Years Used Date Smoking Tobacco: Never Smokeless Tobacco: Never Tobacco Cessation:Counseling Given: Not Answered Alcohol Use Standard Drinks/Week Comments No 0 [...] care for your loved ones. For example, childbirth and infant care teacher or elderly care for an older [...] on file Sexual Orientation Not on file Obstetrics History Para Term AB IAB SAB Ectopic Multiple Livin g Live Births 0 0 0 0 0 0 0 0 Last Filed Vital Signs Vital Sign Reading Time Taken Comments Blood Pressure 127/70 11/16/2025 1:20 PM EST Pulse 77 11/16/2025 1:20 PM EST Temperature 36.5 C (97.7 F) 09/16/2025 11:47 AM EDT Respiratory Rate 14 11/16/2025 1:20 PM EST Oxygen Saturation 97% 09/16/2025 11:47 AM EDT Inhaled Oxygen Concentration - - Weight 59.6 kg (131 lb 6.4 oz) 11/16/2025 1:20 P M EST Height 160 cm (5' 3 ) 09/23/2025 8:10 AM EDT Body Mass Index 23.28 09/23/2025 8:10 AM EDT Plan of Treatment Upcoming Encounters Date Type Department Care Team (Late st Contact Info) Description 11/23/2025 8:15 AM EST Office Visit Orthopedic Surgery [facility] 175 [facility] 140 [place] [phone] Queenie Poole PA [address] [phone] 12/14/2025 10:00 AM EST Office Visit Adult [address] [phone] Donavon Palacios MD [address] [place] [address] 12/17/2025 8:00 AM EST Consult Gastroenterology - 299 [facility] 299 [facility] 419 [place] [phone] Ju Delatorre NP [address] [phone] 01/05/2026 10:30 AM EST Office Visit Orthopedic Surgery [facility] [address] [phone] Shashank Chaidez DPM [address] [phone] 01/17/2026 8:30 AM EST Office Visit Adult [address] [place] [phone] Chaka Haque NP [address] [place], [place] 07/18/2026 9:00 AM EDT Office Visit Adult Medicine [address] [phone] Donavon Palacios MD [address] [place], [place] Health Maintenance Due Date Last Done Comments Social Influencers of Health Screening 07/09/2026 07/09/2025 Cervical Cancer Screening: HPV 11/10/2029 11/10/2024 Cholesterol Screening (Lipid Panel) 09/23/2030 09/23/2025, 07/09/2025, 12/15/2024, Additional history exists DTaP,Tdap,and Td Vaccines (9 - Td or Tdap) 06/30/2034 06/30/2024, 11/19/2006, 09/24/2002, Additional history exists RSV Immunization Adult Patients (1 - 1-dose 75+ series) 2066 HIB Vaccines Completed 11/17/1992, 03/02, 1991 IPV Vaccines Completed 08/13/1995, 07/1993, 11/17/1992, Additional history exists MMR Vaccines Completed 05/25/1996, 11/07/1992 Hepatitis B Vaccines Completed 12/07/1996, 06/30/1996, 05/25/1996 Meningococcal ACWY Vaccine Aged Out 11/19/2006 N o longer eligible based on patient's age to complete this topic HPV Vaccines Completed 06/02/2007, 01/03, 11/19/2006 Varicella Vaccines Completed 09/07/2009, 08/13/1995 Depression Screening Completed 07/09/2025, 06/30/20 Influenza Vaccine Completed 07/29/2025, , 08/07/2024, Additional history exists COVID-19 Vaccine Completed 08/21/2025, 05/2024, 11/01/2023, Additional history exists HIV Screening Completed 11/16/2025, 11/01, 01/16/2010 Hepatitis C Screening Completed 11/16/2025, 024 Hepatitis A Vaccines Aged Out No long er eligible based on patient's age to complete this topic Meningococcal B Vaccine Aged Out No l onger eligible based on patient's age to complete this topic Pneumococcal Vaccine: Pediatrics (0 to 5 Years) and At-Risk Patients (6 to 49 Years) Aged Out No longer eligible based on patient's age to complete this topic RSV Immunization Patients Under 20 months Aged Out No longer eligible based on patient's age to complete this topic Procedures Procedure Name Priority Date/Time Associated Diagnosis Comments HEPATITIS PANEL, ACUTE WITH REFLEX TO CONFIRMATION Routine 11/16/2025 1:48 PM EST Encounter for screening for viral disease HIV 1, 2 ANTIBODY, P24 ANTIGEN WITH REFLEX TO DIFFERENTIATION Routine 11/16/2025 1:48 PM EST Encounter for screening for viral disease MR SHOULDER WO CONTRAST LEFT Routine 11/16/2025 10:34 AM EST Bursitis of left shoulder [place] ARTHROCENTESIS/ASPIRA TION/INJECTION MAJOR JOINT/BURSA W/O U/S GUIDANCE Routine 09/23/2025 8:15 AM EDT Bursitis of left shoulder LIPID PANEL WITH REFLEX TO DIRECT LDL Routine 09/23/2025 7:36 AM EDT Pure hypercholesterolemia VITAMIN D 25 HYDROXY Routine 09/16/2025 12:18 PM EDT Encounter for vitamin deficiency screening XR CERVICAL SPINE 2-3 VIEWS Routine 09/16/2025 8:51 AM EDT Neck pain XR SHOULDER 2+ VIEWS LEFT Routine 09/01/2025 11:03 AM EDT Acute pain of left shoulder HPV WITH REFLEX GENOTYPE Routine 11/10/2024 11:11 AM EST Encounter for screening examination for sexually transmitted infection HM DEPRESSION SCREENING Routine 06/30/2024 from Last 3 Months or Most Recently Relevant to Health Maintenance Results * HIV 1,2 antibody, p24 antigen with reflex to differentiation (11/16/2025 1:48 PM EST) HIV Combo AB/AG Negative Negative 11/16/2025 5:34 PM EST [facility] Blood Venous blood specimen / Unknown Venipuncture / Unknown 11/16/2025 1:48 PM EST 11/16/2025 1:48 PM EST [facility] - 11/16/2025 5:34 PM EST This assay is a 4th generation assay allowing for earlier detection of HIV infection by detecting the presence of the HIV-1 p24 antigen as well as the traditional antibodies to HIV type 1 (including group O) and type 2. Use of a 4th generation assay is the current CDC recommendation for HIV screening. Cherelle Lynch [facility] BLOOD ORDERABLES Final Result [facility] [address] [place] [address], * Hepatitis panel, acute with reflex to confirmation (11/16/2025 1:48 PM EST) Pathologist [facility] Hepatitis B Surface Ag Negative Negative 11/16/2025 5:43 PM EST [facility] Comment:Over the counter sup plements containing high doses of biotin may interfere with this assay. If interference is suspected, patients shoud be retested after refraining from biotin supplements for 72 hours. Hepatitis A Antibody IgM Negative Negative 11/16/2025 5:43 PM EST [facility] Comment:Over the counter sup plements containing high doses of biotin may interfere with this assay. If interference is suspected, patients shoud be retested after refraining from biotin supplements for 72 hours. Hep B Core IgM Negative Negative 11/16/2025 5:43 PM EST [facility] Comment:Over the counter sup plements containing high doses of biotin may interfere with this assay. If interference is suspected, patients shoud be retested after refraining from biotin supplements for 72 hours. Hepatitis C Antibody Negative Negative 11/16/2025 5:43 PM EST [facility] Blood Venous blood specimen / Unknown Venipuncture / Unknown 11/16/2025 1:48 PM EST 11/16/2025 1:48 PM EST us Cherelle Lynch [facility] BLOOD ORDERABLES Final Result [facility] [address] [place] [address], * MR Shoulder wo Contrast Left (11/16/2025 [...] Signed Date: 11/17/2025 03:31 ET Workstation ID: [id number] Transcribed By: Self Edit Transcribed Date: 11/17/2025 [...] Signed Date: 11/17/2025 03:31 ET Workstation ID: [id number] Transcribed By: Self Edit Transcribed Date: 11/17/2025 03:26 ET us Queenie SEN IMG MRI PROCEDURES Final Resu lt * [place] ARTHROCENTESIS/ASPIRATION/INJECTION MAJOR JOINT/BURSA W/O U/S GUIDANCE (09/23/2025 8:15 AM EDT) Queenie Davey PA - 09/23/2025 8:15 AM EDT MCKINLEY Bartlett 09/23/2025 8:58 AM L Inj/Asp: L subacromial bursa Indications: pain Details: 25 G needle, anterolateral approach Medications: 3 mL lidocaine 1 %; 40 mg triamcinolone acetonide 40 mg/mL Patient has had cortisone injections to other areas in the past and tolerated them fine though they did not help. Informed Consent: Laterality: Left Relevant images/test results available and reviewed: yes Health status cleared: Yes Procedure/treatment, purpose, treatment alternatives, risks/potential complications and benefits explained: yes Risk/complications/benefits details: Risks of infection, thinning of the skin and temporary skin discoloration discussed. Discussed risks of temporary increased pain after injection and swelling and mild redness at injection site for couple days. Explained occasionally cortisone injection can cause facial flushing temporarily. Benefits pain management. For postop injection pain ice, Tylenol and/or NSAIDs if patient can take Patient questions answered: yes Patient agrees, verbalizes understanding, and wants to proceed: yes Consent given by: Patient Informed consent discussion completed by Physician/JOSELITO with patient: Verbal Pre-procedure timeout performed: yes us Queenie SEN IN CLINIC/BEDSIDE ORDERABLES Final Result * Lipid panel with reflex to direct LDL (09/23/2025 7:36 AM EDT) Cholesterol 148 0 - 200 mg/dL LAB CHEMISTRY METHOD 09/23/2025 11:09 AM [facility] Triglycerides 138 0 - 150 mg/dL LAB CHEMISTRY METHOD 09/23/2025 11:09 AM [facility] HDL 75 >=40 mg/dL LAB CHEMISTRY METHOD 09/23/2025 11:09 AM [facility] LDL Calculated 45 0 - 100 mg/dL LAB CHEMISTRY METHOD 09/23/2025 11:09 AM [facility] Comment:Estimated LDL Calcul ated using equation: Total cholesterol - HDL cholesterol - (Triglycerides/5) VLDL Cholesterol Félix 27.6 mg/dL LAB CHEMISTRY METHOD 09/23/2025 11:09 AM [facility] Non HDL Chol. (LDL+VLDL) 73 <145 mg/dL LAB CHEMISTRY METHOD 09/23/2025 11:09 AM [facility] Chol/HDL Ratio 2.0 0.0 - 4.4 LAB CHEMISTRY METHOD 09/23/2025 11:09 AM EDT [facility] Blood Venous blood specimen / Unknown Venipuncture / Unknown 09/23/2025 7:36 AM EDT 09/23/2025 7:36 AM EDT us Donavon Palacios MD LAB BLOOD ORDERABLES F inal Result Performing Organization Address [facility] Co de Phone Number [facility] [address] [place] [address], [place] [phone] * (ABNORMAL) Vitamin D 25 hydroxy (09/16/2025 12:18 PM EDT) [facility] Vit D, 25-Hydroxy 15.4(L) 30.0 - 80.0 ng/mL LAB CHEMISTRY METHOD 09/16/2025 2:38 PM EDT [facility] Blood Venous blood specimen / Unknown Venipuncture / Unknown 09/16/2025 12:18 PM EDT 09/16/2025 12:18 PM EDT us Donavon Palacios MD LAB BLOOD ORDERABLES F inal Result Performing Organization Address [facility] de Phone Number [facility] [address] [place] [address], [place] [phone] * XR Cervical Spine 2-3 Views (09/16/2025 8:51 AM EDT) Anatomical Region Laterality Modality Spine, C-spine Computed Radiogr aphy Narrative 09/16/2025 9:10 AM EDT Date of Visit: 09/16/2025 Reason for visit: Neck, shoulder pain and arm paresthesias Views: AP and lateral cervical spine Comparison: None Findings: Mild straightening of normal cervical dosis. Joint space maintained. No arthritis. No neuroforaminal narrowing Impression: Normal cervical spine radiograph Queenie SEN IMG XR PROCEDURES Final Resul t * XR Shoulder 2+ Views Left (09/01/2025 11:03 AM EDT) Anatomical Region Laterality Modality Upper Extremities, Shoulder Left Radi ographic Imaging 09/01/2025 7:55 PM EDT Impressions 09/01/2025 7:57 PM EDT No abnormality detected. -------- FINAL REPORT -------- Dictated By: Luisa Coates Dictated Date: 09/01/2025 19:55 ET Assigned Physician: Luisa Coates Reviewed and Electronically Signed By: Luisa Coates Signed Date: 09/01/2025 19:57 ET Workstation ID: [id number] Transcribed By: Self Edit Transcribed Date: 09/01/2025 19:55 ET Narrative 09/01/2025 7:57 PM EDT EXAM: Left shoulder x-ray HISTORY: Left shoulder pain. COMPARISON: None FINDINGS: 4 views performed. No acute fracture or dislocation detected. No appreciable degenerative changes at the acromioclavicular and glenohumeral joints. No destructive bone lesion. No soft tissue calcifications. Procedure Note Luisa Coates MD - 09/01/2025 EXAM: Left shoulder x-ray HISTORY: Left shoulder pain. COMPARISON: None FINDINGS: 4 views performed. No acute fracture or dislocation detected. No appreciable degenerativechanges at the acromioclavicular and glenohumeral joints. No destructivebone lesion. No soft tissue calcifications. IMPRESSION: No abnormality detected. -------- FINAL REPORT -------- Dictated By: Luisa Coates Dictated Date: 09/01/2025 19:55 ET Assigned Physician: Luisa Coates Reviewed and Electronically Signed By: Luisa Coates Signed Date: 09/01/2025 19:57 ET Workstation ID: [id number] Transcribed By: Self Edit Transcribed Date: 09/01/2025 19:55 ET Vince SEN IMG XR PROCEDURES Final Result * HPV with reflex genotype (11/10/2024 11:11 AM EST) HPV Negative Negative LAB MICROBIOLOGY METHOD 11/11/2024 1:13 PM EST [facility] Brushing/Spatula Cervix uteri structure / Unknown 11/10/2024 11:11 AM EST 11/11/2024 7:40 AM EST Cherelle DE PAZ LAB MOLECULAR DIAGNOSTICS O RDERABLES Final Result [facility] [address] [place] [address], * Depression Screening (06/30/2024) Depression Screening abstracted Historical Provider HEALTH MAINTENANCE Final Result from Last 3 Months or Most Recently Relevant to Health Maintenance Insurance [facility] Care Teams Crop Roller Relationship Specialty Start Date End Date Donavon Palacios MD [address] [place], [place] PCP - General 09/14/24
== END 2025-11-19 13:53 | disposition home or self-care (01) ==
LOC: HO.NEURO 13:52
PROVIDERS: PCP Internal Medicine; Visit Provider Physician Assistant
DX: R20.0 Anesthesia of skin (principal); R20.2 Paresthesia of skin; M25.512 Pain in left shoulder
CPT/HCPCS: 95886; 95910

== ENCOUNTER → 2025-11-19 13:59 | Outpatient (BNV) | payer OTHER, SELFPAY | PROVIDERS: PCP Internal Medicine; Visit Provider Physical Medicine & Rehabilitation | DX: R20.0 Anesthesia of skin (principal) | CPT/HCPCS: 95886; 95910 ==